=== PATIENT | male | born 1975 | race Caucasian/White ===

== ENCOUNTER 2024-08-13 15:35 | Outpatient (CLI) | payer OTHER, SELFPAY ==
--- NOTE | ~2024-08-13 | XR_ITS ---
Exam: Abdomen 1V HISTORY: M54.9 - Dorsalgia, unspecified COMPARISON: None. TECHNIQUE: Supine images of the abdomen FINDINGS: Bowel gas pattern is non-obstructive. There is no free air or deep sulci. Clips within the right upper quadrant suggesting prior cholecystectomy. Fecal stasis within the cecum and ascending colon. 6.5 mm rounded density projecting over the lower pole of the right kidney. No calcifications projecting over the expected region of the left kidney. Lung bases are unremarkable. Bones and soft tissues are unremarkable. Single view of the lumbar spine is unremarkable. IMPRESSION: Nonspecific, nonobstructive bowel gas pattern. 6.5 mm calculus projecting over the lower pole of the right kidney. Reviewed, dictated and finalized at location A. [facility] INS[facility]
== END 2024-08-13 15:36 | disposition home or self-care (01) ==
LOC: MICIMG 15:36
PROVIDERS: PCP Family Medicine Adolescent Medicine; Visit Provider Nurse Practitioner Family
DX: N20.0 Calculus of kidney (principal); M54.9 Dorsalgia, unspecified; R31.29 Other microscopic hematuria
CPT/HCPCS: 74018

== ENCOUNTER 2024-09-24 06:32 | Day surgery (SDC) | payer OTHER, SELFPAY ==
[2024-05-30 11:25] VITALS: BMI 35.2
--- OUTSIDE RECORDS SUMMARY | 2024-09-24 06:51 | XMS_ITS | Clinical Summary ---
Author Organization [facility] Address [address] [place] [id number] Care Team Providers Care Family Service Counselor Name Role Phone Unavailable Primary Care Provider Unavailabl e Immunizations Name Administration Dates Next Due PFIZER COVID-19 (ORIGINAL FO RMULATION, PURPLE CAP) mRNA, LNP-S, PF, 30 MCG/0.3 ML DOSE 07/11/2020,06/20/2020 Social History Tobacco Use Types Packs/Day Years Used Date Smoking Tobacco: Never Assessed Sex and Gender Information Value Date Recorded Sex Assigned at Not on file Legal Sex Male 7:20 PM CDT Gender Identity Not on file Sexual Orientation Not on file Plan of Treatment Health Maintenance Due Date Last Done Comments Colorectal Cancer Screening Colonoscopy (10 Years) 1977 Annual Physical 1980 Hepatitis C 11/04/1995 DTaP, Tdap and Td Vaccines ( 1 - Tdap) 1996 Hepatitis B Vaccines (1 of 3 - 19+ 3-dose series) 1996 COVID-19 Vaccine (2023-2 5 season) 2024 07/11/2020, 06/20/2020 Influenza Adult (#1) 2024 Meningococcal B Vaccine Aged Out No l onger eligible based on patient's age to complete this topic Meningococcal Vaccine Aged Out No derrek deysi eligible based on patient's age to complete this topic Pneumococcal Vaccine: Pediatrics (0 to 5 Years) and At-Risk Patients (6 to 64 Years) Aged Out No longer eligible b ased on patient's age to complete this topic RSV Immunizations Under 20 Months Aged Out No longer eligible b ased on patient's age to complete this topic
--- OUTSIDE RECORDS SUMMARY | 2024-09-24 06:52 | XMS_ITS | Clinical Summary ---
Author Organization [facility] Address [address] [place] [address] Care Team Providers Care Tentering Machine Feeder Name Role Phone Unavailable Primary Care Provider Unavailabl e Encounters Date Type Department Care Team Description 09/19/2024 External Device Data [facility] ABSTRACTION Provider, Abstract 09/19/2024 External Device Data [facility] ABSTRACTION Provider, Abstract 09/18/2024 External Device Data [facility] ABSTRACTION Provider, Abstract 09/17/2024 2:00 PM CDT Ancillary Procedure [facility] [address] [place] [address] Moustapha Delgado MD Kidney stones from Last 3 Months Social History Tobacco Use Types Packs/Day Years Used Date Smoking Tobacco: Never Assessed Sex and Gender Information Value Date Recorded Sex Assigned at Not on file Legal Sex Male 4:41 PM CDT Gender Identity Not on file Sexual Orientation Not on file Plan of Treatment Health Maintenance Due Date Last Done Comments DTAP/TDAP/TD VACCINES (1 - Tdap) 1996 HEPATITIS B VACCINES (1 of 3 - 19+ 3-dose series) 1996 COLORECTAL SCREENING 2022 Colorectal Cancer Screening 2022 FIT-DNA Q 3 years 2022 FIT/FOBT Q 1 year 2022 Flex Sig/CT Colonography Q 5 years 2022 INFLUENZA VACCINE (#1) 2024 COVID-19 Vaccine ( - 2023-2 5 season) 2024 07/11/2020, 06/20/2020 HPV VACCINES Aged Out No longer eligi ble based on patient's age to complete this topic Procedures Procedure Name Priority Date/Time Associated Diagnosis Comments CT ABDOMEN PELVIS WO CONTRAST Routine 09/17/2024 1:40 PM CDT Kidney stones from Last 3 Months Results * CT ABDOMEN PELVIS WO CONTRAST (09/17/2024 1:40 PM CDT) Anatomical Region Laterality Modality Abdomen Computed Tomogra phy 09/17/2024 1:40 PM CDT Impressions 09/17/2024 2:32 PM CDT IMPRESSION: 1.Right Amyand's hernia (inguinal hernia containing the appendix). 2. Small left inguinal hernia containing fat. 3. Benign left renal cyst. 4. Right nonobstructing nephrolithiasis. Narrative 09/17/2024 2:32 PM CDT EXAM: CT ABDOMEN PELVIS WO CONTRAST DATE: 09/17/2024 HISTORY: Kidney stones COMPARISON: None. TECHNIQUE: Axial images with reconstructions. Radiation dose reduction technique was utilized. CONTRAST: None FINDINGS: ABDOMEN: Limited views through the lung bases reveal no acute pulmonary findings. The gallbladder has been removed. The unenhanced liver, spleen, pancreas, right kidney and adrenal glands are normal. There is a water density cyst in the left kidney measures 1.3 cm at the interpolar location. There is a dromedary hump variant of the left kidney. The bowel shows a normal caliber and configuration. No free intraperitoneal air or evidence of obstruction is seen. No significant mesenteric or retroperitoneal lymphadenopathy is noted. There are bilateral fat-containing inguinal hernias. The right-sided inguinal hernia contains the appendix. There is no appendicitis. No AAA. PELVIS: The pelvic viscera are normal. The urinary bladder is unremarkable. No free pelvic fluid is present. Procedure Note Emory Villa MD - 09/17/2024 EXAM: CT ABDOMEN PELVIS WO CONTRAST DATE: 09/17/2024 HISTORY: Kidney stones COMPARISON: None. TECHNIQUE: Axial images with reconstructions. Radiation dose reduction technique was utilized. CONTRAST: None FINDINGS: ABDOMEN: Limited views through the lung bases reveal no acute pulmonary findings. The gallbladder has been removed. The unenhanced liver, spleen, pancreas, right kidney and adrenal glands are normal. There is a water density cyst in the left kidney measures 1.3 cm at the interpolar location. There is a dromedary hump variant of the left kidney. The bowel shows a normal caliber and configuration. No free intraperitoneal air or evidence of obstruction is seen. No significant mesenteric or retroperitoneal lymphadenopathy is noted. There are bilateral fat-containing inguinal hernias. The right-sided inguinal hernia contains the appendix. There is no appendicitis. No AAA. PELVIS: The pelvic viscera are normal. The urinary bladder is unremarkable. No free pelvic fluid is present. IMPRESSION: 1.Right Amyand's hernia (inguinal hernia containing the appendix). 2. Small left inguinal hernia containing fat. 3. Benign left renal cyst. 4. Right nonobstructing nephrolithiasis. us Moustapha Delgado MD CT ORDERABLES Final Resu lt from Last 3 Months Insurance [employer] CHOICE POS
[2024-09-24 07:00] VITALS: BP 121/90; PULSE 77; RESP 18; TEMP 36.8; O2SAT 98
[2024-09-24] MEDS: LACTATED RINGERS 1,000 ML 150 ML IV CONT (07:01)
--- NOTE | 2024-09-24 07:16 | P.PNAN_ITS ---
Anes - Initial Pre Proc Eval Procedure: Operation Date: 09/24/24 08:00 Proposed Procedures p Screening Colonoscopy - Jay Frey MD Date/Time: 09/24/24 07:16 Surgeon: Jay Frey MD Pre Op Diagnosis: Neoplasm Screening Patient Data Age: 48 Gender: M Height: 1.73 m Weight: 98.25 kg Last Vital Signs Temp 36.8 C 09/24/24 07:00 Pulse 77 09/24/24 07:00 Resp 18 09/24/24 07:00 BP 121/90 09/24/24 07:00 Pulse Ox 98 09/24/24 07:00 O2 Del Method Room Air 09/24/24 07:00 Allergies Allergy/AdvReac Type Severity Reaction Status Date / Time levofloxacin (From Levaquin) Allergy Intermediate Redness of Verified 09/24/24 06:58 Skin metoclopramide (From Reglan) Allergy Unknown Mouth Sores Verified 09/03/24 13:20 Penicillins Allergy Unknown Hives Verified 09/03/24 13:20 Home Medications ?Medication ?Instructions ?Recorded ?Confirmed ?Type diphenhydramine HCl 25 mg capsule 25 mg PO QHS PRN allergies 05/25/24 09/24/24 History (Benadryl) tamsulosin 0.4 mg capsule 0.4 mg PO DAILY #30 caps 08/14/24 09/24/24 Rx atorvastatin 20 mg tablet 20 mg PO DAILY #90 tabs 09/03/24 09/24/24 Rx Patient hx anesthesia problems: none Family hx anesthesia problems: none Results Review: All pre-operative results and documents have been reviewed as part of the pre- operative evaluation. [facility] Past Medical History Medical History (Updated 09/24/24 @ 07:17 by Moustapha Young MD) Obesity Mixed hyperlipidemia Surgical History Surgical History Hx of cholecystectomy Family History Family History Mother Hypercholesterolemia PVD (peripheral vascular disease) Father Diabetes mellitus Social History Social History (Updated 09/24/24 @ 07:17 by Moustapha Young MD) Smoking status: Current every day smoker Tobacco type: e-cigarettes/vaping Smokeless tobacco user: chewing tobacco Substance use: never Substance use type: does not use Anes - Eval Final PreProcedure Day of Procedure 09/24/24 07:16 Patient weight: obese Heart: regular rate and rhythm Lungs: clear to auscultation Airway: Mallampati scale class II Neurological: alert and oriented Last oral intake: >/= 8 hours ASA classification: III Emergent: no Anesthetic plan: proceed Anesthesia type and monitoring: general GIVS and standard monitoring Results Review: All pre-operative results and documents have been reviewed as part of the pre- operative evaluation. Informed Consent: The patient's anesthetic plan and its attendant risks and benefits were discussed with the patient/family/POA. Questions were solicited and answers provided to the satisfaction of the patient/family/POA.
--- NOTE | 2024-09-24 08:06 | PM.IMHP ---
H&P: HPI History of Present Illness Date/Time: 09/24/24 08:06 Chief Complaint: Screening colonoscopy Narrative: This is the patient's first colonoscopy. There are no GI symptoms and there is no family history of colorectal cancer. Review of Systems Review of Systems: All systems reviewed & are unremarkable except as noted in HPI and below PMFSH Past Medical History Medical History (Updated 09/24/24 @ 08:07 by Jay Frey MD) Obesity Mixed hyperlipidemia Surgical History Surgical History Hx of cholecystectomy Family History Family History Mother Hypercholesterolemia PVD (peripheral vascular disease) Father Diabetes mellitus Social History Social History (Updated 09/24/24 @ 07:17 by Moustapha Young MD) Smoking status: Current every day smoker Tobacco type: e-cigarettes/vaping Smokeless tobacco user: chewing tobacco Substance use: never Substance use type: does not use Meds Home Medications and Allergies Home Medications ?Medication ?Instructions ?Recorded ?Confirmed ?Type diphenhydramine HCl 25 mg capsule 25 mg PO QHS PRN allergies 05/25/24 09/24/24 History (Benadryl) tamsulosin 0.4 mg capsule 0.4 mg PO DAILY #30 caps 08/14/24 09/24/24 Rx atorvastatin 20 mg tablet 20 mg PO DAILY #90 tabs 09/03/24 09/24/24 Rx Allergies Allergy/AdvReac Type Severity Reaction Status Date / Time levofloxacin (From Levaquin) Allergy Intermediate Redness of Verified 09/24/24 06:58 Skin metoclopramide (From Reglan) Allergy Unknown Mouth Sores Verified 09/03/24 13:20 Penicillins Allergy Unknown Hives Verified 09/03/24 13:20 Vital Signs Vital Signs - 24 hr 09/24/24 07:00 Temperature 98.3 F Pulse Rate 77 Respiratory Rate 18 Blood Pressure 121/90 Pulse Oximetry 98 Oxygen Delivery Room Air Exam Const: General: cooperative and healthy appearing Resp: Effort & Inspection: normal respiratory effort and able to speak in complete sentences Auscultation: clear to auscultation bilaterally Cardio: Rate: regular rate Rhythm: regular rhythm GI: Inspection: normal to inspection GI Palp: No No hepatosplenomegaly present Auscultation: normal bowel sounds Rectal Exam: deferred Skin: General skin exam: normal color Psych: Appearance: grossly normal Mental Status: mental status grossly normal Assessment and Plan Assessment and plan (1) Encounter for screening colonoscopy: Code(s): Z12.11 - Encounter for screening for malignant neoplasm of colon Status: Acute Assessment and Plan: The patient is deemed a good candidate for the procedure. Consent signed. Will proceed.
[2024-09-24] MEDS: SIMETHICONE ORAL SUSPENSION 20 MG/0.3 ML 30 ML BOTTLE 0.6 ML IRRIGATION (08:23)
[2024-09-24 08:40] VITALS: BP 127/89; PULSE 73; RESP 16; O2SAT 97
[2024-09-24 08:50] VITALS: BP 110/78; PULSE 68; RESP 15; O2SAT 96
[2024-09-24 09:00] VITALS: BP 106/84; PULSE 71; RESP 15; O2SAT 97
--- NOTE | 2024-09-24 09:11 | WPDANESPN ---
Anes - Prog Note Post-Op Date/Time: 09/24/24 09:11 Cardiovascular status: normal Respiratory status: normal Airway patency: baseline Mental status: baseline Vital Signs: Last Vital Signs Temp 36.8 C 09/24/24 07:00 Pulse 71 09/24/24 09:00 Resp 15 09/24/24 09:00 BP 106/84 09/24/24 09:00 Pulse Ox 97 09/24/24 09:00 O2 Del Method Room Air 09/24/24 09:00 Pain Score (VAS): 0/10 I/O: Intake & Output 09/23/24 09/24/24 09/24/24 23:59 07:59 15:59 Intake Total 600 Balance 600 Patient Feedback: Patient satisfied with anesthetic care.
== END 2024-09-24 09:12 | disposition home or self-care (01) ==
PROVIDERS: PCP Family Medicine Adolescent Medicine; Visit Provider Internal Medicine Gastroenterology
PROC: 0DJD8ZZ Inspection of Lower Intestinal Tract, Via Natural or Artificial Opening Endoscopic (ICD-10-PCS; CPT 45378; principal; 2024-09-24 08:00)
DX: Z12.11 Encounter for screening for malignant neoplasm of colon (principal); D12.2 Benign neoplasm of ascending colon; D12.5 Benign neoplasm of sigmoid colon; K64.8 Other hemorrhoids
CPT/HCPCS: 45385

== ENCOUNTER 2024-09-24 07:00 | Outpatient (NON) | payer OTHER, SELFPAY ==
--- OUTSIDE RECORDS SUMMARY | 2024-09-25 14:26 | XMS_ITS | Clinical Summary ---
Author Organization [facility] Address [address] [place] [address] Care Team Providers Care Business Department Chair Name Role Phone Unavailable Primary Care Provider Unavailabl e Encounters Date Type Department Care Team Description 09/19/2024 External Device Data [facility] ABSTRACTION Provider, Abstract 09/19/2024 External Device Data [facility] ABSTRACTION Provider, Abstract 09/18/2024 External Device Data [facility] ABSTRACTION Provider, Abstract 09/17/2024 2:00 PM CDT Ancillary Procedure [facility] [address] [place] [address] Moustapha Delgado MD Kidney stones [...]
--- OUTSIDE RECORDS SUMMARY | 2024-09-25 14:26 | XMS_ITS | Clinical Summary ---
Author Organization [facility] Address [address] [place] [address] Care Team Providers Care Ceramics Artist Name Role Phone Unavailable Primary Care Provider [...]
== END 2024-09-24 07:01 | disposition home or self-care (01) ==
LOC: ANHLAB 09-25 12:33
PROVIDERS: PCP Family Medicine Adolescent Medicine; Visit Provider Internal Medicine Gastroenterology
DX: Z12.11 Encounter for screening for malignant neoplasm of colon (principal); D12.2 Benign neoplasm of ascending colon; D12.5 Benign neoplasm of sigmoid colon
CPT/HCPCS: 88305